=== PATIENT | male | born 1995 | race Asian ===

== ENCOUNTER → 2023-10-02 | Outpatient (CLI) | payer OTHER | LOC: M CARPUL 13:48 | PROVIDERS: ATTEND Physician Assistant | DX: M25.50 Pain in unspecified joint (principal) ==

== ENCOUNTER → 2024-06-22 | Outpatient (CLI) | payer OTHER | LOC: M CARPUL 13:24 | DX: R05.3 Chronic cough (principal) ==

== ENCOUNTER → 2024-07-14 | Outpatient (CLI) | payer OTHER ==
[~2024-07-14] MED LIST: METHACHOLINE KIT (6 VIAL.NEB PREMIX) INH ONE
== END ==
LOC: M CARPUL 07:36
DX: R05.3 Chronic cough (principal)
CPT/HCPCS: 94070; J7674